=== PATIENT | female | born 1980 | race Caucasian/White ===

== ENCOUNTER 2022-12-24 23:12 | Emergency (ER) | payer OTHER ==
[~2022-12-24] VITALS: Ht 170.2 cm; Wt 137.9 kg
[2022-12-24 23:38] LABS: Basophils # (auto) 0.1 10 ^3/uL (0-0.2); Basophils % (auto) 1.1 % (0.0-2.0); Eosinophils # (auto) 0.2 10 ^3/uL (0-0.8); Eosinophils % (auto) 3.2 % (0.0-7.0); Hematocrit 37.3 % (36.0-46.0); Hemoglobin 12.7 g/dL (12.2-16.2); Lymphocytes # (auto) 2.1 10 ^3/uL (0.4-5.4); Lymphocytes % (auto) 36.2 % (10.0-50.0); Mean Corpuscular Volume 85.2 fL (80.0-100.0); Monocytes # (auto) 0.4 10 ^3/uL (0-1.3); Monocytes % (auto) 7.2 % (0.0-12.0); Neutrophils % (auto) 52.3 % (37.0-80.0); Nucleated Red Blood Cells % 0.1 %; Red Blood Cells 4.38 10^6/uL (4.0-5.20); Red Cell Distribution Width 13.5 % (11.8-14.3); White Blood Cell 5.7 10^3/uL (4.4-10.8)
[2022-12-24 23:47] LABS: Urine Bacteria FEW /hpf (None Seen); Urine Blood Negative /uL (Negative); Urine Specific Gravity 1.008 (1.001-1.035); Urine WBC <1 /hpf (0 - 5)
[2022-12-25 00:03] LABS: Albumin 3.2 g/dL (3.4-5.0); BUN/Creatinine Ratio 21.3 (10.0-20.0); Calcium 8.3 mg/dL (8.5-10.1); Potassium 4.4 mmol/L (3.5-5.1)
[2022-12-25 00:28] LABS: Bilirubin, Total 0.6 mg/dL (0.2-1.0)
[2022-12-25 03:10] VITALS: BP 109/60
[2022-12-25] MEDS ORDERED: IOHEXOL 350 MG/ML 100ML IJ ONE (04:27)
== END 2022-12-25 06:37 | disposition home or self-care (01) ==
LOC: ER 23:12
DX: R07.81 Pleurodynia (principal); E86.0 Dehydration; R79.89 Other specified abnormal findings of blood chemistry; E88.09 Other disorders of plasma-protein metabolism, not elsewhere classified
CPT/HCPCS: 36415; 71045; 71275; 80053; 81001; 84484; 85025; 93005; 99285; Q9967

== ENCOUNTER → 2024-02-28 | Outpatient (CLI) | payer OTHER ==
[~2024-02-28] VITALS: Ht 170.2 cm; Wt 83.9 kg
== END | disposition home or self-care (01) ==
LOC: Rad HDHVI 14:14
PROVIDERS: ATTEND Internal Medicine Cardiovascular Disease
DX: I45.4 Nonspecific intraventricular block (principal); R42 Dizziness and giddiness
CPT/HCPCS: 78452; 93017; 96374; A9500

== ENCOUNTER 2024-10-22 11:00 | Inpatient (IN) | payer OTHER ==
[~2024-10-22] VITALS: Ht 170.2 cm; Wt 80.2 kg
--- NOTE | 2024-10-22 11:52 | ED.PDOC ---
History of Present Illness HPI Comments This is a 44-year-old female who comes in with chief complaint of right lower quadrant pain starting at approximately 9:00 a.m. this morning. The patient was states that she was approximately six weeks and has developed some spotting and cramping since yesterday morning. The symptoms have worsened so she came to the emergency department's for evaluation. She states that the pain in the right lower quadrant is sharp and is rated as around a 5/10. The patient denies any recent trauma or any other complaints at this time Time Seen by MD: 11:19 Reviewed Notes: Nurses Notes, Medications, Allergies (No allergies to medications) Allergies: Coded Allergies: NO KNOWN ALLERGIES (Unverified , 12/24/22) Information Source: Patient Mode of Arrival: Ambulatory Severity: Moderate Timing: Days Duration: Since onset Prehospital treatment: None Location: Right lower quadrant sharp pain Associated signs and symptoms Vaginal spotting Past Medical History PAST MEDICAL HISTORY: Denies Surgical History: Appendectomy Surgical History (Other): Weight loss surgery HAND THERAPIST History: No Pertinent HAND THERAPIST History Family History Family History: Unknown Social History Smoker: Cigarettes (Stopped after she found out that she was ) Alcohol: Occasionally (Stopped after she found out that she was ) Drugs: Denies Drug Use Lives In: Home Constitutional: denies: chills, diaphoresis, fatigue, fever, malaise, sweats, weakness, others EENTM: denies: blurred vision, double vision, ear bleeding, ear discharge, ear drainage, ear pain, ear ringing, eye pain, eye redness, hearing loss, mouth pain, mouth swelling, nasal discharge, nose bleeding, nose congestion, nose pain, photophobia, tearing, throat pain, throat swelling, voice changes, others Respiratory: denies: cough, hemoptysis, orthopnea, SOB at rest, shortness of breath, SOB with excertion, stridor, wheezing, others Cardiovascular: denies: chest pain, dizzy spells, diaphoresis, Dyspnea on exertion, edema, irregular heart beat, left arm pain, lightheadedness, palpitations, PND, syncope, others Gastrointestinal: denies: abdomen distended, abdominal pain, blood streaked bowels, constipated, diarrhea, dysphagia, difficulty swallowing, hematemesis, melena, nausea, poor appetite, poor fluid intake, rectal bleeding, rectal pain, vomiting, others Genitourinary: reports: abnormal vagina bleeding, pain, ; denies: burning, dyspareunia, dysuria, flank pain, frequency, hematuria, incontinence, vagina discharge, urgency, others Neurological: denies: dizziness, fainting, headache, left sided numbness, left sided weakness, numbness, paresthesia, pre-existing deficit, right sided numbness, right sided weakness, seizure, speech problems, tingling, tremors, weakness, others Musculoskeletal: denies: back pain, gout, joint pain, joint swelling, muscle pain, muscle stiffness, neck pain, others Integumetry: denies: bruises, change in color, change in hair/nails, dryness, laceration, lesions, lumps, rash, wounds, others Allergic/Immunocompromised: denies: Difficulty Healing, Frequent Infections, Hives, Itching, others Hematologic/Lymphatic: denies: anemia, blood clots, easy bleeding, easy bruising, swollen glands, others Endocrine: denies: excessive hunger, excessive sweating, excessive thirst, excessive urination, flushing, intolerance to cold, intolerance to heat, unexplained weight gain, unexplained weight loss, others Psychiatric: denies: anxiety, bipolar disorder, depression, hopeless, panic disorder, schizophrenia, sleepless, suicidal, others Physical Exam General Appearance: Moderate Distress HEENT: Normal ENT Inspection, Pharynx Normal, TMs Normal Neck: Full Range of Motion, Non-Tender, Normal, Normal Inspection Respiratory: Chest Non-Tender, Lungs Clear, No Accessory Muscle Use, No Respiratory Distress, Normal Breath Sounds Cardiovascular: No Edema, No JVD, No Murmur, No Gallop, Normal Peripheral Pulses, Regular Rate/Rhythm Breast Exam: Deferred Gastrointestinal: No Organomegaly, No Pulsatile Mass, Normal Bowel Sounds, RLQ, Soft, Tenderness Genitalia: Deferred Pelvic: Deferred Rectal: Deferred Extremities: No calf tenderness, Normal capillary refill, Normal inspection, Normal range of motion, Non-tender, No pedal edema Musculoskeletal : Apperance: Normal Neurologic: Alert, devops developer II-XII nml as Tested, No Motor Deficits, Normal Affect, Normal Mood, No Sensory Deficits Cerebellar Function: Normal Reflexes: Normal Skin: Dry, Normal Color, Warm Lymphatic: No Adenopathy Was a procedure done? Was a procedure done?: No Differential Dx Considerations may include: Ectopic , UTI X-Ray, Labs, Meds, VS Vital Signs Date Time Temp Pulse Resp B/P (MAP) Pulse Ox O2 Delivery O2 Flow Rate FiO2 10/22/24 11:58 98.1 79 18 113/66 (82) 96 98.1 Lab Test 10/22/24 13:09 10/22/24 11:43 Range/Units Urine Color Yellow Yellow Urine Clarity Clear Clear Urine pH 5.5 5.0-9.0 Urine Specific [place] 1.034 1.001-1.035 Urine Protein Negative Negative Urine Ketones 1+ H Negative Urine Blood Negative Negative /uL Urine Nitrite Negative Negative Urine Bilirubin Negative Negative Urine Urobilinogen Normal Negative mg/dL Urine Leukocyte Esterase Negative Negative /uL Urine RBC 1 0 - 4 /hpf Urine Microscopic WBC 4 0-5 /HPF Urine Squamous Epithelial Cells Few <5 /hpf Urine Bacteria Few H None Seen /hpf Urine Mucus Few None Seen Urine Glucose Normal Normal mg/dL White Blood Count 5.2 4.4-10.8 10^3/uL Red Blood Count 4.30 4.0-5.20 10^6/uL Hemoglobin 13.0 12.2-16.2 g/dL Hematocrit 38.6 36.0-46.0 % Mean Corpuscular Volume 89.7 80.0-100.0 fL Mean Corpuscular Hemoglobin 30.3 28.0-32.0 pg Mean Corpuscular Hemoglobin Concent 33.8 32.0-36.0 g/dL Red Cell Distribution Width 13.3 11.8-14.3 % Platelet Count 300 140-450 10^3/uL Mean Platelet Volume 8.0 6.9-10.8 fL Neutrophils (%) (Auto) 52.3 37.0-80.0 % Lymphocytes (%) (Auto) 37.9 10.0-50.0 % Monocytes (%) (Auto) 7.0 0.0-12.0 % Eosinophils (%) (Auto) 1.8 0.0-7.0 % Basophils (%) (Auto) 1.0 0.0-2.0 % Neutrophils # (Auto) 2.7 1.6-8.6 10 ^3/uL Lymphocytes # (Auto) 2.0 0.4-5.4 10 ^3/uL Monocytes # (Auto) 0.4 0-1.3 10 ^3/uL Eosinophils # (Auto) 0.1 0-0.8 10 ^3/uL Basophils # (Auto) 0.1 0-0.2 10 ^3/uL Nucleated Red Blood Cells 0.0 % Prothrombin Time 10.8 9.3-11.8 sec Prothrombin Time INR 1.02 0.9-1.15 Activated Partial Thromboplast Time 24.8 24.5-34.5 SEC Beta HCG, Quantitative 598.1 H 1.5-4.2 mIU/mL Pelvic ultrasound shows: IMPRESSION: There is tubular structure seen adjacent to the right adenxa , ectopic cannot be excluded. Correlate with serial beta hCGs. No IUP is noted. The patient's urine test is negative for any infection at this time The patient's CBC is within normal limits The quantitative hCG is 598.1 At this time, the patient is being admitted. We contacted Dr. Marcos and the patient will be taken to the operating room. The patient was being typed and screened as well. We discussed the findings with the patient and she also states that her sister had an ectopic so she is very aware of the procedure The patient was being admitted to the OR at this time. Images Reviewed?: Images reviewed and evaluated by me Time of 1ST Reevaluation: 11:51 Reevaluation 1ST: Unchanged Patient Education/Counseling: Diagnosis, Treatment, Prognosis, Need For Follow Up Family Education/Counseling: No Family Present Departure 1 Departure Time of Disposition: 14:01 Impression: Primary Impression: Ectopic Qualified Codes: O00.101 - Right tubal without intrauterine Disposition: ADMITTED INPATIENT Admit to: Med Surg Condition: Fair Critical Care Note Critical Care Time?: No Stability Stability form required: Yes Unstable for transfer: ED Physician Assesment (Clinical assesment) Heart Score Heart Score: Heart Score Response (Comments) Value History N/A 0 EKG N/A 0 Age N/A 0 Risk Factors N/A 0 Troponin N/A 0 Total 0 CHIDI QUESADA MD Oct 22, 2024 11:52
[2024-10-22 11:58] LABS: Basophils # (auto) 0.1 10 ^3/uL (0-0.2); Eosinophils # (auto) 0.1 10 ^3/uL (0-0.8); Eosinophils % (auto) 1.8 % (0.0-7.0); Hematocrit 38.6 % (36.0-46.0); Lymphocytes % (auto) 37.9 % (10.0-50.0); Mean Corpuscular Hemoglobin 30.3 pg (28.0-32.0); Mean Corpuscular Hgb Conc. 33.8 g/dL (32.0-36.0); Mean Corpuscular Volume 89.7 fL (80.0-100.0); Monocytes # (auto) 0.4 10 ^3/uL (0-1.3); Neutrophils # (auto) 2.7 10 ^3/uL (1.6-8.6); Neutrophils % (auto) 52.3 % (37.0-80.0); Platelet Count (auto) 300 10^3/uL (140-450); Red Cell Distribution Width 13.3 % (11.8-14.3); White Blood Cell 5.2 10^3/uL (4.4-10.8)
--- NOTE | 2024-10-22 13:28 | DVH ---
OB ULTRASOUND <14 WEEKS: HISTORY: rlq pain TECHNIQUE: Multiple real-time grayscale sonographic images of the pelvis with duplex Doppler color f low, spectral and M-mode analysis. TRANSDUCERS: Transvaginal and transabdominal FINDINGS: The uterus measures 8 x 5 x 5 cm The cervix seen Right ovary measures 1 x 1 x 1 cm with normal Doppler color flow Left ovary not seen. There is tubular structure seen adjacent to the right adenxa , ectopic cannot be excluded. Correlate with serial beta hCGs. No IUP is noted. IMPRESSION: There is tubular structure seen adjacent to the right adenxa , ectopic cannot be excluded. Correlate with serial beta hCGs. No IUP is noted. Preliminary findings discussed with dr. Hernandez the time of dictation
[2024-10-22 13:35] LABS: INR 1.02 (0.9-1.15); Partial Thromboplastin Time 24.8 SEC (24.5-34.5); Prothrombin Time 10.8 sec (9.3-11.8)
[2024-10-22 13:38] LABS: Urine Bacteria FEW /hpf (None Seen); Urine Blood Negative /uL (Negative); Urine Clarity Clear (Clear); Urine Color Yellow (Yellow); Urine Mucus FEW (None Seen); Urine Protein, UAD Negative (Negative); Urine Specific Gravity 1.034 (1.001-1.035); Urine Squamous Epithelial Cell FEW /hpf (<5); Urine Urobilinogen Normal (Negative); Urine WBC 4 /HPF (0-5); Urine pH 5.5 (5.0-9.0)
[2024-10-22] MEDS: ACETAMINOPHEN 325 MG TAB PO ONE (14:36)
--- NOTE | 2024-10-22 15:16 | DVHHP ---
ADMIT DATE: 10/22/2024 CHIEF COMPLAINT: Spotting and abdominal pain. HISTORY OF PRESENT ILLNESS: The patient is a 44-year-old female admitted for suspected ectopic . The patient complains of right lower quadrant started at 9:00 a.m. is getting worse with some spotting. The patient's beta hCG is 590. She reports the pain as being 5/10. PAST MEDICAL HISTORY: None. PAST SURGICAL HISTORY: Appendectomy and a weight loss surgery. SOCIAL HISTORY: None. FAMILY HISTORY: None. OBSTETRIC AND GYNECOLOGIC HISTORY: Last Pap years ago. SOCIAL HISTORY: Positive for smoking and occasional alcohol use. REVIEW OF SYSTEMS: Consistent with HPI. PHYSICAL EXAMINATION: VITAL SIGNS: Stable, afebrile. HEENT: Within normal limits. CARDIOVASCULAR: Regular rate and rhythm. LUNGS: Clear to auscultation. BREASTS: Symmetrical. No masses. ABDOMEN: Soft, some right lower quadrant tenderness. EXTREMITIES: No clubbing, cyanosis. PELVIC: Cervix closed. Some scant bleeding noted. Uterus 8 weeks' size. Adnexa nonpalpable, tender, uterus 8 weeks' size. IMPRESSION: Rule out right ectopic . PLAN: Laparoscopy, possible exploratory laparotomy, possible removal of affected tube or ovary. Informed consent obtained. Possibility of exploratory laparotomy discussed with the patient. The patient fully understands. Options reviewed. The patient wishes to proceed with planned procedure. DO MAUREEN Song TID: [id number] RECEIPT: [id number]
[2024-10-22] MEDS ORDERED: SUCCINYLCHOLINE CHLORIDE 20 MG/ML 10ML VIAL IV ONE (17:51)
[2024-10-22] MEDS ORDERED: LIDOCAINE 2% (LOCAL ANESTH.) PF 5ml SDV ONE (17:59)
[2024-10-22] MEDS ORDERED: fentaNYL CITRATE 100 MCG/2 ML VL ONE ×2 (17:59→18:29)
[2024-10-22] MEDS ORDERED: DexAMETHasone SOD PHOS 10MG/1ML VIAL INJ ONE (17:59)
[2024-10-22] MEDS ORDERED: ONDANSETRON HCL 4 MG/2 ML VIAL ONE (17:59)
[2024-10-22] MEDS ORDERED: PROPOFOL 10 MG/ML 20 ML IV ONE (17:59)
[2024-10-22] MEDS ORDERED: ceFAZolin 1GM/50ML 100 ML IV ONE (18:05)
[2024-10-22] MEDS ORDERED: IBUP-1456 PO (18:08)
[2024-10-22] MEDS ORDERED: ZOFR4T PO (18:08)
[2024-10-22] MEDS ORDERED: DOCU-94 PO (18:08)
[2024-10-22] MEDS ORDERED: HYDR-4072 PO (18:08)
[2024-10-22] MEDS ORDERED: NITROGLYCERIN 0.4 MG SL TAB SL PRN (18:30)
[2024-10-22] MEDS ORDERED: MORPHINE SULFATE INJ 2 MG/ml SYRG IV PRN (18:30)
--- NOTE | 2024-10-22 19:04 | DVHPN2 ---
Visit Coding OBGYN Date of Service: Oct 22, 2024 Billing Provider: THOMAS GOODWIN DO CAR SEAT MAKER Common Visit Codes: [id number] INP/OBS CARE (HIGH) THOMAS GOODWIN DO Oct 22, 2024 19:04
[2024-10-22] MEDS ORDERED: HYDROmorphone HCL 2 MG/ML VL/or syr ONE (19:05)
--- NOTE | 2024-10-22 19:09 | DVHOP2 ---
Operative Report DATE OF OPERATION: 10/22/24 PREOPERATIVE DIAGNOSES: suspect right Ruptured ectopic POSTOPERATIVE DIAGNOSES: same,leaking ectopic preg ,dense abdomino pelvic adhesions SURGEON: Ade Marcos D.O./lisset ANESTHESIOLOGIST: christine lopez TYPE OF ANESTHESIA : General CONSENT: The patient was informed of the risks and benefits of the procedure. The patient was informed of the risks and benefits of the procedure. These include but are not limited to , complications of anesthesia, postoperative infection, incomplete relief of symptoms, recurrence of symptoms, damage to blood vessels, nerves and tendons, deep venous thrombosis, pulmonary embolism and possible need for repeat surgery in the future. FINDINGS: right ectopic ampullary leaking , right ovary grossly normal appearing, uterus 8 weeks size, left tube and ovary grossly normal. PROCEDURES: laparsocopy , Exploratory laparotomy,right salpingectomy,evacuation of clots. PROCEDURE IN DETAIL: The patient was taken to the operating room placed in supine position. General anesthesia was performed without difficulty.laparocopy was attempted but due to dense adhesions entry to the abdominal cavity was not successful subsequently expl lap was performed. A low Pfannenstiel incision was made with scalpel down to the rectus fascia. The rectus fascia was nicked in the midline and carried laterally. The rectus fascia was dissected superiorly and inferiorly. The rectus muscles were in the midline. Peritoneum was adri ntified and entered with sharp dissection . An O'Yon-O'Moe retractor with moist laps were placed into the abdomen and bowel was packed at this point. At approximately 100 ml of hemoperitoneum was evacuated. The ectopic was identified and using a CARMEN stapler the right tube was excised. Clips were applied to the pedicular site. Copious irrigation was performed all blood clots were removed. The left tube and ovary were grossly intact. The right ovary was grossly intact appearing. Uterus was 8 weeks in size. Surgicel was applied to to the right tubal site. All laparotomy sponges were removed from the abdomen and pelvis. No bleeding was noted good hemostasis was noted. The O'Yon O'Moe retractor was removed. Fascia was closed using 0 Prolene x2. Skin was closed using staplers. Patient was extubated successfully. She was taken to recovery room in stable condition. Specimen was sent to pathology and it was taken out of the room. ESTIMATED BLOOD LOSS: EBL was 100ml of hemoperitoneum 20 ml intraoperative blood loss. Visit Coding OBGYN Date of Service: Oct 22, 2024 Billing Provider: ADE MARCOS DO DIRECTOR HR COMMUNICATIONS Common Visit Codes: [id number] INP/OBS CARE(HIGH) DIRECTOR HR COMMUNICATIONS Procedure Codes: [id number] LAPROSCOPIC, 70498-FJP.SURG:W/REM ADNEXAL STRUCT ADE MARCOS DO Oct 22, 2024 19:09
[2024-10-22] MEDS ORDERED: NEOSTIGMINE 1 MG/ML INJ (10mg/10ML VIAL) ONE (19:10)
[2024-10-22] MEDS ORDERED: GLYCOPYRROLATE 0.2 MG/ML 1ML VIAL ONE (19:10)
--- NOTE | 2024-10-22 19:11 | POSTOP ---
Post-Operative Note Post-Operative Note Preop Diagnosis suspect leaking ectopic preg right adenxa Postop Diagnosis: same,pelvic adhesions Operation performed laparoscopy,expl lap rs Specimen r tube Anesthesia: General Anesthesiologist: christine rosenbaum Blood Loss(fluid mgmt) 100ml Surgeon Ade aMrcos Direct Marketing Coordinator lisset Akhtar michael Complications & Mgmt none Date 10/22/24 Time 19:09 Visit Coding OBGYN Date of Service: Oct 22, 2024 Billing Provider: ADE MARCOS DO MANAGEMENT PSYCHOLOGIST Common Visit Codes: [id number] INP/OBS CARE(HIGH) MANAGEMENT PSYCHOLOGIST Procedure Codes: 84613-ZDD.SURG:W/LYSIS OF ADHESIONS, 98368- LAP.SURG:W/REM ADNEXAL STRUCT ADE MARCOS DO Oct 22, 2024 19:11
[2024-10-22] MEDS: BUPIVACAINE HCL 0.25% P/F 10 ML VIAL ONE (19:20)
[2024-10-22] MEDS: LIDOCAINE W/ EPINEPHRINE 1% 20ML VIAL ONE (19:20)
[2024-10-22 19:40] VITALS: PULSE 97; RESP 17; O2SAT 100
[2024-10-22] MEDS: HYDROmorphone HCL 2 MG/ML VL/or syr IV PRN ×2 (19:58→22:46)
[2024-10-22 20:00] VITALS: RESP 17
[2024-10-22] MEDS ORDERED: METOCLOPRAMIDE HCL 5MG/ml INJ 2ml VIAL IV ONE (20:00)
[2024-10-22] MEDS ORDERED: hydrALAZINE HCL 20 MG/ML VL IV PRN (20:00)
[2024-10-22] MEDS ORDERED: ACETAMINOPHEN IV 1000 MG/100ML (10MG/ML) IV ONE (20:00)
[2024-10-22] MEDS ORDERED: HYDROmorphone HCL 2 MG/ML VL/or syr IV PRN (20:00)
[2024-10-22] MEDS ORDERED: ePHEDrine SULFATE 50 MG/ML AMP IV PRN (20:00)
[2024-10-22] MEDS ORDERED: ONDANSETRON HCL 4 MG/2 ML VIAL IV ONE (20:00)
[2024-10-22 21:00] VITALS: RESP 11
[2024-10-22] MEDS: ceFAZolin 1GM/50ML 50 ML IV SCH (22:00)
[2024-10-22 22:15] VITALS: BP 104/73; PULSE 86; RESP 18; TEMP 98.3; O2SAT 95
[2024-10-22] MEDS: LACTATED RINGER'S 1,000 ML IV SCH (22:38)
[2024-10-22 23:25] LABS: Basophils # (auto) 0 10 ^3/uL (0-0.2); Basophils % (auto) 0.2 % (0.0-2.0); Eosinophils # (auto) 0 10 ^3/uL (0-0.8); Hematocrit 34.2 % (36.0-46.0); Hemoglobin 11.7 g/dL (12.2-16.2); Lymphocytes # (auto) 0.5 10 ^3/uL (0.4-5.4); Lymphocytes % (auto) 4.8 % (10.0-50.0); Mean Corpuscular Hemoglobin 30.9 pg (28.0-32.0); Mean Corpuscular Hgb Conc. 34.1 g/dL (32.0-36.0); Mean Corpuscular Volume 90.4 fL (80.0-100.0); Monocytes # (auto) 0.2 10 ^3/uL (0-1.3); Monocytes % (auto) 2.4 % (0.0-12.0); Neutrophils # (auto) 8.8 10 ^3/uL (1.6-8.6); Neutrophils % (auto) 92.6 % (37.0-80.0); Platelet Count (auto) 250 10^3/uL (140-450); Red Blood Cells 3.78 10^6/uL (4.0-5.20); Red Cell Distribution Width 13.9 % (11.8-14.3); White Blood Cell 9.5 10^3/uL (4.4-10.8)
[2024-10-23] VITALS (7 sets, daily range): BP systolic 97–115; BP diastolic 54–66; PULSE 61–89; RESP 16–20; TEMP 97.8–98.3; O2SAT 94–100
[2024-10-23] MEDS: ONDANSETRON HCL 4 MG/2 ML VIAL IV PRN (04:12)
[2024-10-23 07:28] LABS: Basophils # (auto) 0 10 ^3/uL (0-0.2); Basophils % (auto) 0.3 % (0.0-2.0); Eosinophils # (auto) 0 10 ^3/uL (0-0.8); Eosinophils % (auto) 0.1 % (0.0-7.0); Hematocrit 37.9 % (36.0-46.0); Hemoglobin 12.7 g/dL (12.2-16.2); Lymphocytes # (auto) 1.5 10 ^3/uL (0.4-5.4); Lymphocytes % (auto) 16.9 % (10.0-50.0); Mean Corpuscular Hemoglobin 30.8 pg (28.0-32.0); Mean Corpuscular Hgb Conc. 33.6 g/dL (32.0-36.0); Mean Corpuscular Volume 91.6 fL (80.0-100.0); Monocytes # (auto) 0.7 10 ^3/uL (0-1.3); Monocytes % (auto) 7.7 % (0.0-12.0); Neutrophils # (auto) 6.8 10 ^3/uL (1.6-8.6); Platelet Count (auto) 277 10^3/uL (140-450); Red Blood Cells 4.13 10^6/uL (4.0-5.20); Red Cell Distribution Width 13.9 % (11.8-14.3)
--- NOTE | 2024-10-23 07:39 | DVHPN2 ---
Chief Complaints Patient reports: No new complaints Nursing reports: No new complaints Objective Vitals Vital Signs Date Time Temp Pulse Resp B/P (MAP) Pulse Ox O2 Delivery O2 Flow Rate FiO2 10/23/24 06:42 82 18 105/55 10/23/24 05:00 97.8 94 97.8 10/22/24 22:15 Room Air* 0 21 Medications Current Medications Medications (Trade) Dose Ordered Sig/Sondra Route PRN Reason Start Time Stop Time Status Last Admin Cefazolin Sodium 50 ml @ 100 mls/hr Q8HR IV 10/22/24 22:00 10/23/24 06:11 Hydromorphone HCl (Dilaudid Injection) 1 mg Q2HP PRN IV SEVERE PAIN (7-10 PAIN SCALE) 10/22/24 19:15 10/23/24 06:12 Lactated Ringer's 1,000 ml @ 150 mls/hr Q6H40M IV 10/22/24 19:15 10/23/24 06:23 Morphine Sulfate 2 mg Q30M PRN IV FOR CHEST PAIN 10/22/24 18:30 Nitroglycerin (Ntrostat Sublingual) 0.4 mg Q5MINP PRN SL FOR CHEST PAIN 10/22/24 18:30 Ondansetron HCl (Zofran) 4 mg Q4HP PRN IV NAUSEA / VOMITING 10/22/24 19:15 10/23/24 04:12 General: Normal Lungs: Normal Cardiovascular: Normal Abdominal: Soft Extremities: Normal Studies Laboratory Tests 10/23/24 06:59 Ass/Plan Assessment s/p expl lap rs Plan supportive care do pod one oredr Visit Coding OBGYN Date of Service: Oct 23, 2024 Billing Provider: THOMAS GOODWIN DO PARTS CLERK Common Visit Codes: [id number]-CJD/OBS SAME DATE (HIGH) THOMAS GOODWIN DO Oct 23, 2024 07:39
[2024-10-23] MEDS ORDERED: ONDANSETRON HCL 4 MG/2 ML VIAL IV PRN (07:45)
[2024-10-23] MEDS ORDERED: BISACODYL 10 MG RECT SUPP PR PRN (07:45)
[2024-10-23] MEDS: LACT. RINGERS/OXYTOCIN 20UNITS 1,000 ML IV ONE (10:04)
[2024-10-23] MEDS: HYDROcodone-ACET 10/325MG TAB PO PRN (10:49)
[2024-10-23] MEDS: DOCUSATE SOD 100 MG CAP PO PRN (10:49)
[2024-10-23] MEDS ORDERED: ACETAMINOPHEN 325 MG TAB PO PRN (13:00)
[2024-10-23] MEDS: SIMETHICONE 80 MG CHEWABLE TABLET PO SCH (13:19)
[2024-10-24 01:00] VITALS: BP 97/65; PULSE 81; RESP 17; TEMP 98.2; O2SAT 99
[2024-10-24 05:00] VITALS: BP 94/59; PULSE 87; RESP 19; TEMP 98.3; O2SAT 96
--- NOTE | 2024-10-24 07:18 | DVHPN2 ---
Chief Complaints Patient reports: No new complaints, Feels better Nursing reports: No new complaints Objective Vitals Vital Signs Date Time Temp Pulse Resp B/P (MAP) Pulse Ox O2 Delivery O2 Flow Rate FiO2 10/24/24 05:00 98.3 87 19 94/59 (71) 96 98.3 10/23/24 20:00 Room Air* 0 21 Medications Current Medications Medications (Trade) Dose Ordered Sig/Sondra Route PRN Reason Start Time Stop Time Status Last Admin Acetaminophen (Tylenol Tablet) 650 mg Q4HP PRN PO MILD PAIN (1-3 PAIN SCALE) 10/23/24 13:00 Acetaminophen/ Hydrocodone Bitart ([place] 10/325MG Tab) 1 tab Q4HP PRN PO SEVERE PAIN (7-10 PAIN SCALE) 10/23/24 07:45 10/24/24 03:47 Bisacodyl (Dulcolax Suppository) 10 mg DAILYP PRN [place] FOR CONSTIPATION 10/23/24 07:45 Dimethicone (Mylicon Tab) 80 mg QID PO 10/23/24 12:00 10/24/24 05:22 Docusate Sodium (Colace Capsule) 100 mg Q12HP PRN PO FOR CONSTIPATION 10/23/24 07:45 10/23/24 10:49 Ondansetron HCl (Zofran) 4 mg Q4HP PRN IV NAUSEA / VOMITING 10/23/24 07:45 General: Normal Lungs: Normal Cardiovascular: Normal Abdominal: Soft Extremities: Normal Studies Laboratory Tests 10/23/24 06:59 Ass/Plan Assessment s/p expl lap rs Plan possible dc home later today fu next monday w/me Visit Coding OBGYN Date of Service: Oct 24, 2024 Billing Provider: THOMAS GOODWIN DO HYDROTHERAPIST Common Visit Codes: [id number] INP/OBS CARE (HIGH) THOMAS GOODWIN DO Oct 24, 2024 07:18
[2024-10-24 08:30] VITALS: BP 101/64; PULSE 78; RESP 14; TEMP 98.6; O2SAT 96
== END 2024-10-24 12:15 | disposition home or self-care (01) | DRG 817 ==
LOC: ER 11:07 → OVERFLOW 18:21 → WEST WING 22:31
PROVIDERS: ADMIT Obstetrics & Gynecology; ATTEND Obstetrics & Gynecology
PROC: 0WJJ4ZZ Inspection of Pelvic Cavity, Percutaneous Endoscopic Approach (ICD-10-PCS; 2024-10-22)
PROC: 0WCJ0ZZ Extirpation of Matter from Pelvic Cavity, Open Approach (ICD-10-PCS; 2024-10-22)
PROC: 10T20ZZ Resection of Products of Conception, Ectopic, Open Approach (ICD-10-PCS; principal; 2024-10-22 18:12)
PROC: 0UB50ZZ Excision of Right Fallopian Tube, Open Approach (ICD-10-PCS; 2024-10-22 18:12)
DX: O00.101 Right tubal pregnancy without intrauterine pregnancy (principal); K66.1 Hemoperitoneum; F17.210 Nicotine dependence, cigarettes, uncomplicated; K66.0 Peritoneal adhesions (postprocedural) (postinfection); Z79.899 Other long term (current) drug therapy; Z53.31 Laparoscopic surgical procedure converted to open procedure
CPT/HCPCS: 36415; 76801; 76817; 81001; 84702; 85025; 85610; 85730; 86850; 86900; 86901; G0378; J0131; J0330; J1100; J2003; J2405; J2590; J2704; J3490

== ENCOUNTER 2024-12-11 10:45 | Emergency (ER) | payer OTHER ==
[~2024-12-11] VITALS: Ht 170.2 cm; Wt 76.1 kg
[~2024-12-11 10:45] MED LIST: DOCU-94 PO; HYDR-4072 PO; IBUP-1456 PO; ZOFR4T PO
--- NOTE | 2024-12-11 11:17 | ED.PDOC ---
GI ASSESSMENT HPI Comments 44 y.o female presents to the ED for a chief complaint of left lower suprapubic/pelvic pain s/p twisting motion x 1 week ago. Patient reports pain has increased, states she called her CASH POSTING SPECIALIST but was unable to get an close appointment so she was advised to come into the ED if pain worsened. Patient reports recent laparotomy for right tubal ligation done a couple weeks ago. She denies any vaginal bleeding, hematuria, dysuria, fever, chills, flank pain, back pain, SOB or chest pain. Chief Complaint: Pelvic Pain Time Seen by MD: 11:07 Primary Care Provider: unknown Reviewed Notes: Nurses Notes, Medications, Allergies Allergies: Coded Allergies: NO KNOWN ALLERGIES (Unverified , 12/24/22) Home Meds Active Scripts Ondansetron Odt 4MG Tab (ZOFRAN PO) 4 Mg Tb, 4 MG PO Q4HPRN PRN for 10 Days, #50 TAB ODT TAB-DISSOLVE IN MOUTH, THEN SWALLOW Prov:THOMAS GOODWIN 10/22/24 Ibuprofen (Ibuprofen) 800 Mg Tab, 800 MG PO TID PRN for 4 Days, #12 TAB Prov:THOMAS GOODWIN DO 10/22/24 Hydrocodone-Acetaminophen (Hydrocodone/Acetaminophen 10-325 mg) 1 Tab Tab, 1 TAB PO Q6HPRN PRN for 6 Days, #24 TAB Prov:THOMAS GOODWIN 10/22/24 Docusate Sodium (Colace) 100 Mg Cap, 1 CAP PO BID, #60 CAP 2 Refills Prov:THOMAS GOODWIN 10/22/24 Information Source: Patient Mode of Arrival: Ambulatory Timing: Weeks (1) Duration: Since onset Quality: Sharp Vomitus: None Stool: Normal Severity: Moderate Recent: None Recent Hx of: Other (laparotomy for right tubal ligation) Pain Location: LLQ, Suprapubic Modifying Factors: Nothing Associated sign and symptoms: Abdominal Pain Past Medical History PAST MEDICAL HISTORY: Denies Surgical History: Appendectomy Surgical History (Other): laparotomy for right tubal ligation SEED TRUCKER History: No Pertinent SEED TRUCKER History Family History Family History: Unknown Social History Smoker: Cigarettes Alcohol: Occasionally Drugs: Denies Drug Use Lives In: Home Constitutional: denies: chills, diaphoresis, fatigue, fever, malaise, sweats, weakness, others EENTM: denies: blurred vision, double vision, ear bleeding, ear discharge, ear drainage, ear pain, ear ringing, eye pain, eye redness, hearing loss, mouth pain, mouth swelling, nasal discharge, nose bleeding, nose congestion, nose pain, photophobia, tearing, throat pain, throat swelling, voice changes, others Respiratory: denies: cough, hemoptysis, orthopnea, SOB at rest, shortness of breath, SOB with excertion, stridor, wheezing, others Cardiovascular: denies: chest pain, dizzy spells, diaphoresis, Dyspnea on exertion, edema, irregular heart beat, left arm pain, lightheadedness, palpitations, PND, syncope, others Gastrointestinal: reports: abdominal pain; denies: abdomen distended, blood streaked bowels, constipated, diarrhea, dysphagia, difficulty swallowing, hematemesis, melena, nausea, poor appetite, poor fluid intake, rectal bleeding, rectal pain, vomiting, others Genitourinary: reports: pain; denies: abnormal vagina bleeding, burning, dyspareunia, dysuria, flank pain, frequency, hematuria, incontinence, , vagina discharge, urgency, others Neurological: denies: dizziness, fainting, headache, left sided numbness, left sided weakness, numbness, paresthesia, pre-existing deficit, right sided numbness, right sided weakness, seizure, speech problems, tingling, tremors, wea kness, others Musculoskeletal: denies: back pain, gout, joint pain, joint swelling, muscle pain, muscle stiffness, neck pain, others Integumetry: denies: bruises, change in color, change in hair/nails, dryness, l aceration, lesions, lumps, rash, wounds, others Allergic/Immunocompromised: denies: Difficulty Healing, Frequent Infections, Hives, Itching, others Hematologic/Lymphatic: denies: anemia, blood clots, easy bleeding, easy bruising, swollen glands, others Endocrine: denies: excessive hunger, excessive sweating, excessive thirst, excessive urination, flushing, intolerance to cold, intolerance to heat, unexplained weight gain, unexplained weight loss, others Psychiatric: denies: anxiety, bipolar disorder, depression, hopeless, panic disorder, schizophrenia, sleepless, suicidal, others All Other Systems: Reviewed and Negative Physical Exam General Appearance: Moderate Distress HEENT: Normal ENT Inspection, Pharynx Normal, TMs Normal Neck: Full Range of Motion, Non-Tender, Normal, Normal Inspection Respiratory: Chest Non-Tender, Lungs Clear, No Accessory Muscle Use, No Respiratory Distress, Normal Breath Sounds Cardiovascular: No Edema, No JVD, No Murmur, No Gallop, Normal Peripheral Pulses, Regular Rate/Rhythm Breast Exam: Deferred Gastrointestinal: No Organomegaly, Non Tender, No Pulsatile Mass, Normal Bowel Sounds, Soft Genitalia: Deferred Pelvic: Deferred Rectal: Deferred Extremities: No calf tenderness, Normal capillary refill, Normal inspection, Normal range of motion, Non-tender, No pedal edema Musculoskeletal : Apperance: Normal Neurologic: Alert, rubber goods tester II-XII nml as Tested, No Motor Deficits, Normal Affect, Normal Mood, No Sensory Deficits Cerebellar Function: Normal Reflexes: Normal Skin: Dry, Normal Color, Warm Peripheral Pulses: 3+ Radial (R), 3+ Radial (L) Lymphatic: No Adenopathy Was a procedure done? Was a procedure done?: No GI differential Dx Differential Diagnosis: Constipation, Diverticular disease, Esophagitis, Gastritis/PUD, Gastroenteritis, Inflammatory BD, Ovarian cyst/torsion, PID, Trauma intraabdominal, UTI, Other Other Differential Diagnosis PTLS, X-Ray, Labs, Meds, VS Vital Signs Date Time Temp Pulse Resp B/P (MAP) Pulse Ox O2 Delivery O2 Flow Rate FiO2 12/11/24 10:51 98.2 97 20 129/67 (87) 97 98.2 Patient alert. Complaining of pelvic pain. Vitals stable. Answering questions. Recently had tubal procedure for ectopic. Ambulating. Abdomen is soft nontender. Reviewed her previous visit. Explained to the patient. Was told to follow up with her primary care physician. Was told to come back if there is any problem. Time of 1ST Reevaluation: 12:00 Reevaluation 1ST: Unchanged Patient Education/Counseling: Diagnosis, Treatment, Prognosis Family Education/Counseling: No Family Present Departure 1 Departure Time of Disposition: 12:02 Impression: Primary Impression: Pelvic pain Disposition: 01 HOME / SELF CARE / HOMELESS Condition: Good Discharged With: Self Critical Care Note Critical Care Time?: No Stability Stability form required: No I personally scribed for MONSERRAT WILKS MD ([email or web address]) on 12/11/24 at 11:17. Electronically submitted by Kristin Silva ([facility]). MONSERRAT WILKS MD Dec 11, 2024 11:17
[2024-12-11 12:14] LABS: Urine Bacteria FEW /hpf (None Seen); Urine Blood Negative /uL (Negative); Urine Clarity Turbid (Clear); Urine Color Yellow (Yellow); Urine Mucus FEW (None Seen); Urine Protein, UAD Negative (Negative); Urine Specific Gravity 1.028 (1.001-1.035); Urine Squamous Epithelial Cell MOD /hpf (<5); Urine Urobilinogen Normal (Negative); Urine WBC 1 /HPF (0-5); Urine pH 6.5 (5.0-9.0)
--- NOTE | 2024-12-11 12:19 | DVH ---
INDICATION: Pain Ovarian torsion TECHNIQUE: Multiple real-time grayscale transabdominal sonographic images along with color and duplex Doppler of the uterus and ovaries were obtained. COMPARISON: None FINDINGS: The uterus measures 7.1 x 3.8 x 3.4 cm. The endometrial stripe measures 0.6 cm. The right ovary measures 1.7 x 1.2 x 1.7 cm. The left ovary measures 2.9 x 1.5 x 2.6 cm. Subsequent color and duplex Doppler interrogation of the ovaries demonstrated symmetric vascular flow to both ovaries, though this does not exclude the possibility of torsion due to the dual blood suppl y. IMPRESSION: 1. Grossly unremarkable pelvic ultrasound.
[2024-12-11 13:33] VITALS: BP 94/68; TEMP 97.9
[2024-12-11 13:43] VITALS: PULSE 81; RESP 16; O2SAT 97
== END 2024-12-11 13:43 | disposition home or self-care (01) ==
LOC: ER 10:45
DX: R10.2 Pelvic and perineal pain (principal); F17.210 Nicotine dependence, cigarettes, uncomplicated; Z90.49 Acquired absence of other specified parts of digestive tract; Z98.51 Tubal ligation status
CPT/HCPCS: 76856; 81001